=== PATIENT | female | born 1950 | race African-American/Black ===

== ENCOUNTER 2016-12-23 10:46 | Emergency (ER) | payer MEDICARE, OTHER ==
[~2016-12-23] VITALS: Ht 172.7 cm; Wt 75.7 kg
[~2016-12-23 10:46] MED LIST: LOSA25TA3 PO; PROT40 PO
[2016-12-23] MEDS ORDERED: IPRATROPIUM BROMIDE (0.02%) 0.5MG/2.5ML NEB HHN STA (11:10)
[2016-12-23] MEDS: ALBUTEROL (0.083%) 2.5MG/3ML NEB HHN SCH ×3 (11:30→12:30)
[2016-12-23] MEDS ORDERED: DEXAMETHASONE 4MG TABLET PO ONE (11:30)
[2016-12-23 11:44] LABS: BASOPHILS % 2.2 % (0.0-2.0); EOSINOPHILS % 3.5 % (0.0-5.0); HEMATOCRIT. 29.5 % (36.0-48.0); HEMOGLOBIN. 10.2 g/dL (12.0-16.0); LYMPHOCYTES % 38.1 % (20.0-50.0); MEAN CORPUSCULAR HEMOGLOBIN 28.7 pg (28.0-32.0); MEAN CORPUSCULAR VOLUME 83.3 fL (81.0-99.0); MEAN PLATELET VOLUME 5.9 fl (7.4-10.4); NEUTROPHILS % 43.2 % (40.0-76.0); PLATELET 319 x1000/uL (130-400); RED BLOOD CELL COUNT 3.55 mill/uL (4.2-5.4)
[2016-12-23 11:49] LABS: INR 1.1; PROTHROMBIN TIME 11.2 sec (9.4-11.6)
[2016-12-23 11:59] LABS: CARBON DIOXIDE 27 mEq/L (21-32); CHLORIDE 95 mEq/L (98-107); TROPONIN I < 0.02 ng/mL (0.00-0.04)
[2016-12-23] MEDS ORDERED: SODIUM CHLORIDE 0.9% 1,000 ML IV ONE (12:15)
[2016-12-23 14:29] VITALS: BP 135/70
== END 2016-12-23 14:31 | disposition home or self-care (01) ==
LOC: ER 12:29
DX: J44.1 Chronic obstructive pulmonary disease with (acute) exacerbation (principal)
CPT/HCPCS: 36415; 71010; 80053; 83880; 84484; 85025; 85610; 93005; 94640; 96360; 96361; 99285; J7611; J7030; J8540

== ENCOUNTER 2017-03-19 15:47 | Inpatient (IN) | payer MEDICARE, OTHER ==
[~2017-03-19] VITALS: Ht 170.2 cm; Wt 87.5 kg
[2017-03-19] MEDS ORDERED: ALBUTEROL (0.083%) 2.5MG/3ML NEB HHN STA (17:29)
[2017-03-19] MEDS ORDERED: METHYLPREDNISOLONE SOD SUCC 125 MG/2 ML VIAL IV STA (17:29)
[2017-03-19] MEDS ORDERED: IPRATROPIUM BROMIDE (0.02%) 0.5MG/2.5ML NEB HHN STA (17:29)
[2017-03-19 18:21] LABS: BASOPHILS % 1.2 % (0.0-2.0); EOSINOPHILS % 3.3 % (0.0-5.0); HEMATOCRIT. 35.5 % (36.0-48.0); HEMOGLOBIN. 11.7 g/dL (12.0-16.0); LYMPHOCYTES % 49.9 % (20.0-50.0); MEAN CORPUSCULAR HEMOGLOBIN 26.9 pg (28.0-32.0); MEAN CORPUSCULAR VOLUME 81.5 fL (81.0-99.0); MEAN PLATELET VOLUME 6.6 fl (7.4-10.4); MONOCYTES % 7.2 % (2.0-8.0); NEUTROPHILS % 38.4 % (40.0-76.0); PLATELET 305 x1000/uL (130-400); RED BLOOD CELL COUNT 4.36 mill/uL (4.2-5.4); RED CELL DISTRIBUTION WIDTH 14.2 % (11.6-14.6)
[2017-03-19 18:25] LABS: PARTIAL THROMBOPLASTIN TIME 25.9 sec (23.4-31.0); PROTHROMBIN TIME 10.4 sec (9.4-11.6)
[2017-03-19 18:30] LABS: CHLORIDE 102 mEq/L (98-107)
[2017-03-19] MEDS ORDERED: ASPIRIN 81MG TABLET PO ONE (18:45)
[2017-03-19] MEDS ORDERED: LEVOFLOXACIN 750MG PREMIX 150 ML IV ONE (18:45)
[2017-03-19] MEDS ORDERED: NITROGLYCERIN OINT 1GM/INCH UDPKT TD ONE (18:45)
[2017-03-19] MEDS ORDERED: MAGNESIUM 2 G PREMIX 50 ML IV ONE (18:45)
[2017-03-19 19:33] LABS: BG CARBOXYHEMOGLOBIN 0.2 % (0.5-1.5); BG DEOXYHEMOGLOBIN 0.7 % (0.0-5.0); BG FRACTION INSPIRED OXYGEN 51; BG HCO3 ACT 27.3 mmol/L (22.0-26.0); BG METHEMOGLOBIN 0.4 % (0.0-1.5); BG OXYGEN SATURATION 99.3 % (92.0-98.5); BG OXYHEMOGLOBIN 98.7 % (94.0-97.0); BG PCO2 45.9 mmHg (35.0-45.0); BG PH 7.393 (7.350-7.450); BG PO2 190.7 mmHg (75.0-100.0); BG SAMPLE SITE LEFT RADIAL; BG TOTAL HEMOGLOBIN 11.7 g/dL (12.0-18.0)
[2017-03-19 19:35] LABS: ETHANOL BLOOD < 10 mg/dL
[2017-03-19 22:00] VITALS: BP 165/62
[2017-03-19] MEDS ORDERED: METO25TA6 PO (23:19)
[2017-03-19] MEDS ORDERED: PHEN100C12 PO (23:19)
[2017-03-19] MEDS ORDERED: BENA1TAB16 PO (23:19)
[2017-03-19] MEDS ORDERED: HYDR-4134 PO (23:19)
[2017-03-19] MEDS ORDERED: HYDR25TA PO (23:19)
[2017-03-19] MEDS ORDERED: AMLO10TA80 PO (23:19)
[2017-03-19] MEDS ORDERED: GABA-531 PO (23:19)
[2017-03-20] VITALS: BP 135/63
[2017-03-20] MEDS ORDERED: IPRATROPIUM/ALBUTEROL 0.5-3(2.5)MG/3ML NEB INH PRN
[2017-03-20] MEDS ORDERED: CLONIDINE 0.1MG TABLET PO PRN
[2017-03-20] MEDS ORDERED: MAGNESIUM/ALUMINUM HYDROXIDE/SIMETHICONE 30ML UDC PO PRN
[2017-03-20] MEDS ORDERED: DIPHENHYDRAMINE 50MG/ML VIAL IV PRN
[2017-03-20] MEDS ORDERED: ACETAMINOPHEN 325MG TABLET PO PRN
[2017-03-20] MEDS ORDERED: ONDANSETRON HCL 4MG/2ML INJ IV PRN
[2017-03-20 04:00] VITALS: BP 126/59
[2017-03-20] MEDS: SODIUM CHLORIDE 0.9% INJ 3ML FLUSH IVF SCH ×2 (06:42→20:34)
[2017-03-20 08:00] VITALS: BP 139/69
[2017-03-20] MEDS: PANTOPRAZOLE 40MG DR TABLET PO SCH (08:25)
[2017-03-20] MEDS: AMLODIPINE 10MG TABLET PO SCH (08:36)
[2017-03-20] MEDS: PHENYTOIN SODIUM EXTENDED 100MG CAPSULE PO SCH ×3 (08:36→17:54)
[2017-03-20] MEDS: GABAPENTIN 300MG CAPSULE PO SCH ×3 (08:36→17:53)
[2017-03-20] MEDS: HYDRALAZINE HCL 25MG TABLET PO SCH ×3 (08:36→21:22)
[2017-03-20] MEDS: IPRATROPIUM/ALBUTEROL 0.5-3(2.5)MG/3ML NEB HHN SCH ×4 (08:56→21:05)
[2017-03-20 12:00] VITALS: BP 130/60
[2017-03-20] MEDS ORDERED: PROMETHAZINE/DEXTROMETHORPHAN 6.25-15MG/5ML BOTTLE 120ML PO PRN (13:45)
[2017-03-20 18:00] VITALS: BP 131/58
[2017-03-20 20:00] VITALS: BP 139/68
[2017-03-20] MEDS ORDERED: LEVOFLOXACIN 500MG PREMIX 100 ML IV SCH (20:00)
[2017-03-20] MEDS: GUAIFENESIN 600MG ER TABLET PO SCH (21:22)
[2017-03-21] VITALS: BP 132/65
[2017-03-21] MEDS: IPRATROPIUM/ALBUTEROL 0.5-3(2.5)MG/3ML NEB HHN SCH ×5 (00:30→16:06)
[2017-03-21 04:00] VITALS: BP 134/58
[2017-03-21] MEDS: SODIUM CHLORIDE 0.9% INJ 3ML FLUSH IVF SCH ×2 (06:12→14:00)
[2017-03-21] MEDS: HYDRALAZINE HCL 25MG TABLET PO SCH ×2 (06:12→12:32)
[2017-03-21 08:00] VITALS: BP 127/89
[2017-03-21] MEDS: PANTOPRAZOLE 40MG DR TABLET PO SCH (08:51)
[2017-03-21] MEDS: AMLODIPINE 10MG TABLET PO SCH (08:57)
[2017-03-21] MEDS: GABAPENTIN 300MG CAPSULE PO SCH ×3 (08:57→17:13)
[2017-03-21] MEDS: GUAIFENESIN 600MG ER TABLET PO SCH (08:57)
[2017-03-21] MEDS: PHENYTOIN SODIUM EXTENDED 100MG CAPSULE PO SCH ×2 (08:57→17:12)
[2017-03-21 12:00] VITALS: BP 127/73
[2017-03-21 16:03] VITALS: BP 127/73
[2017-03-22] MEDS ORDERED: FAMOTIDINE 20MG TABLET PO SCH (09:00)
== END 2017-03-21 17:25 | disposition home or self-care (01) | DRG 192 ==
LOC: ER 17:33 → 7WST 19:37 → EDBEDREQTM 19:37 → EDBEDREQ 19:37 → ENRESERV 20:34
PROVIDERS: ADMIT Internal Medicine; ATTEND Internal Medicine
DX: J44.0 Chronic obstructive pulmonary disease with (acute) lower respiratory infection (principal); I10 Essential (primary) hypertension; J44.1 Chronic obstructive pulmonary disease with (acute) exacerbation; M19.90 Unspecified osteoarthritis, unspecified site; J20.9 Acute bronchitis, unspecified; K21.9 Gastro-esophageal reflux disease without esophagitis; Z88.8 Allergy status to other drugs, medicaments and biological substances; Z91.048 Other nonmedicinal substance allergy status; Z79.899 Other long term (current) drug therapy; Z98.51 Tubal ligation status; Z90.49 Acquired absence of other specified parts of digestive tract
CPT/HCPCS: 36415; 36600; 71045; 82375; 82805; 83605; 83880; 84484; 93005; 94640; 96365; 96367; 96375; 99285; G0482; J1956; J2930; J3475; J7050; J7611; J7620

== ENCOUNTER 2022-02-26 15:50 | Inpatient (IN) | payer BC, MEDICARE ==
[~2022-02-26] VITALS: Ht 167.6 cm; Wt 93.9 kg
[~2022-02-26 15:50] MED LIST changes: +AMLO10TA80 PO; +BENA1TAB16 PO; +GABA-532 PO; +HYDR-4134 PO; +HYDR25TA PO; -LOSA25TA3 PO; +METO25TA6 PO; +PHEN100C12 PO
[2022-02-26] MEDS ORDERED: keppra (16:58)
[2022-02-26] MEDS ORDERED: LEVETIRACETAM 1000MG PREMIX 100 ML IV ONE (18:00)
[2022-02-26] MEDS ORDERED: LEVETIRACETAM 1,000 MG in SODIUM CHLORIDE 0.9% 100 ML IV NR (18:15)
[2022-02-26 18:26] LABS: MEAN CORPUSCULAR HEMOGLOBIN 25.9 pg (28.0-32.0); MEAN PLATELET VOLUME 6.7 fl (7.4-10.4); PLATELET 327 x1000/uL (130-400); RED BLOOD CELL COUNT 4.25 mill/uL (4.2-5.4); RED CELL DISTRIBUTION WIDTH 17.8 % (11.6-14.6)
[2022-02-26 19:37] LABS: CHLORIDE 99 mEq/L (98-107)
[2022-02-26 19:44] LABS: ETHANOL BLOOD < 10 mg/dL
[2022-02-26 22:47] LABS: PLATELET ESTIMATE NORMAL
[2022-02-27] MEDS ORDERED: ONDANSETRON HCL 4MG/2ML INJ IV PRN (05:00)
[2022-02-27] MEDS ORDERED: IPRATROPIUM/ALBUTEROL 0.5-3(2.5)MG/3ML NEB HHN PRN (05:00)
[2022-02-27] MEDS ORDERED: DOCUSATE SODIUM 100MG CAPSULE PO PRN (05:00)
[2022-02-27] MEDS ORDERED: ACETAMINOPHEN 325MG TABLET PO PRN ×2 (05:00)
[2022-02-27] MEDS ORDERED: GUAIFENESIN 200MG/10ML SUGAR FREE UDC PO PRN (05:00)
[2022-02-27] MEDS ORDERED: MAGNESIUM/ALUMINUM HYDROXIDE/SIMETHICONE 30ML UDC PO PRN (05:00)
[2022-02-27] MEDS ORDERED: CLONIDINE 0.1MG TABLET PO PRN (05:00)
[2022-02-27] MEDS ORDERED: TELM40TA7 PO (05:32)
[2022-02-27] MEDS ORDERED: CARV12.545 PO (05:32)
[2022-02-27 06:02] LABS: PHOSPHORUS 4.1 mg/dL (2.5-4.9)
[2022-02-27 06:55] LABS: TOTAL IRON BINDING CAPACITY 473 ug/dL (250-450)
[2022-02-27 07:08] LABS: FERRITIN 30 ng/mL (10-291)
[2022-02-27 07:33] LABS: VITAMIN B12 SERUM 690 pg/mL (211-911)
[2022-02-27] MEDS ORDERED: LEVETIRACETAM 500MG PREMIX 100 ML IV ONE (09:00)
[2022-02-27] MEDS: FAMOTIDINE 20MG TABLET PO SCH ×2 (09:17→21:09)
[2022-02-27] MEDS: LOSARTAN POTASSIUM 50 MG TABLET PO SCH (09:17)
[2022-02-27] MEDS: CARVEDILOL 12.5MG TABLET PO SCH ×2 (09:17→17:00)
[2022-02-27] MEDS: ENOXAPARIN 40MG/0.4ML SYR SUBCUT SCH (09:18)
[2022-02-27 09:57] LABS: CLARITY URINE CLOUDY (CLEAR); COLOR URINE DARK YELLOW (YELLOW); KETONES URINE TRACE (NEGATIVE); LEUKOCYTE ESTERASE URINE 1+ (NEGATIVE); NITRITE URINE NEGATIVE (NEGATIVE); OCCULT BLOOD URINE TRACE (NEGATIVE); PH URINE 5.5 (4.5-8.0); PROTEIN URINE 2+ (NEGATIVE); SPECIFIC GRAVITY URINE 1.019 (1.005-1.030); UROBILINOGEN URINE 0.2 E.U./dL (0.2-1.0)
[2022-02-27 10:18] LABS: *AMPHETAMINES SCREEN URINE NEGATIVE (NEGATIVE); *BARBITURATES SCREEN URINE NEGATIVE (NEGATIVE); *BENZODIAZEPINES SCREEN URINE NEGATIVE (NEGATIVE); *COCAINE SCREEN URINE NEGATIVE (NEGATIVE); CANNABINOID URINE SCREEN NEGATIVE (NEGATIVE); METHADONE URINE SCREEN NEGATIVE (NEGATIVE); OPIATES URINE SCREEN NEGATIVE (NEGATIVE); PHENCYCLIDINE URINE SCREEN NEGATIVE (NEGATIVE)
[2022-02-27 10:35] LABS: FOLIC ACID (FOLATE) SERUM > 20.00 ng/mL (>5.38)
[2022-02-27] MEDS ORDERED: CEFTRIAXONE SODIUM 1 G/VIAL IV SCH (11:15)
[2022-02-27] MEDS ORDERED: CEFTRIAXONE 1GM PREMIX 50ML IV NR (12:00)
[2022-02-27 15:38] LABS: CREATINE KINASE 327 IU/L (26-192)
[2022-02-27 18:22] VITALS: BP 147/66
[2022-02-27 18:28] VITALS: BP 133/80
[2022-02-27 18:42] VITALS: BP 132/70
[2022-02-27 20:00] VITALS: BP 128/71
[2022-02-27] MEDS: LEVETIRACETAM 500MG/5ML CUP PO SCH (22:28)
[2022-02-27] MEDS ORDERED: THIAMINE HCL 100 MG in SODIUM CHLORIDE 0.9% 49 ML IV NR (23:00)
[2022-02-28] VITALS: BP 126/66
[2022-02-28 04:00] VITALS: BP 133/51
[2022-02-28 06:46] LABS: CHLORIDE 103 mEq/L (98-107); HDL CHOLESTEROL 59 mg/dL (40-59); LDL CHOLESTEROL 182 mg/dL (5-100); T4 FREE 1.11 ng/dL (0.76-1.46)
[2022-02-28 06:49] LABS: BASOPHILS % 0.6 % (0.0-2.0); HEMATOCRIT. 26.4 % (36.0-48.0); HEMOGLOBIN. 8.6 g/dL (12.0-16.0); LYMPHOCYTES % 11.9 % (20.0-50.0); MEAN CORPUSCULAR HEMOGLOBIN 26.2 pg (28.0-32.0); MEAN CORPUSCULAR VOLUME 80.2 fL (81.0-99.0); MEAN PLATELET VOLUME 6.9 fl (7.4-10.4); MONOCYTES % 11.4 % (2.0-8.0); NEUTROPHILS % 75.1 % (40.0-76.0); PLATELET 250 x1000/uL (130-400); RED BLOOD CELL COUNT 3.29 mill/uL (4.2-5.4); RED CELL DISTRIBUTION WIDTH 18.6 % (11.6-14.6)
[2022-02-28 08:14] VITALS: BP 133/51
[2022-02-28] MEDS: ENOXAPARIN 40MG/0.4ML SYR SUBCUT SCH (08:15)
[2022-02-28] MEDS: LOSARTAN POTASSIUM 50 MG TABLET PO SCH (08:15)
[2022-02-28] MEDS: LEVETIRACETAM 500MG/5ML CUP PO SCH ×2 (08:15→21:11)
[2022-02-28] MEDS: FAMOTIDINE 20MG TABLET PO SCH ×2 (08:15→21:11)
[2022-02-28] MEDS: CARVEDILOL 12.5MG TABLET PO SCH ×2 (08:16→17:32)
[2022-02-28] MEDS: CEFTRIAXONE 1,000 MG in DEXTROSE 5% WATER 50 ML IV SCH (11:31)
[2022-02-28] MEDS ORDERED: CEFTRIAXONE 1,000 MG in DEXTROSE 5% WATER 50 ML IV SCH (12:00)
[2022-02-28 13:18] VITALS: BP 129/67
[2022-02-28] MEDS ORDERED: IPRATROPIUM BROMIDE (0.02%) 0.5MG/2.5ML NEB HHN PRN (14:15)
[2022-02-28] MEDS ORDERED: ALBUTEROL (0.083%) 2.5MG/3ML NEB HHN PRN (14:15)
[2022-02-28 17:32] VITALS: BP 125/68
[2022-02-28 20:03] VITALS: BP 125/55
[2022-03-01] VITALS: BP 148/76
[2022-03-01 04:00] VITALS: BP 155/68
[2022-03-01 08:00] VITALS: BP 117/69
[2022-03-01] MEDS: LOSARTAN POTASSIUM 50 MG TABLET PO SCH (08:14)
[2022-03-01] MEDS: LEVETIRACETAM 500MG/5ML CUP PO SCH ×2 (08:14→21:20)
[2022-03-01] MEDS: CARVEDILOL 12.5MG TABLET PO SCH ×2 (08:14→17:00)
[2022-03-01] MEDS: FAMOTIDINE 20MG TABLET PO SCH ×2 (08:14→21:20)
[2022-03-01 12:00] VITALS: BP 99/65
[2022-03-01] MEDS: CEFTRIAXONE 1,000 MG in DEXTROSE 5% WATER 50 ML IV SCH (12:42)
[2022-03-01 16:00] VITALS: BP 149/94
[2022-03-01 20:00] VITALS: BP 149/68
[2022-03-01] MEDS: ATORVASTATIN CALCIUM 20MG TABLET PO SCH (21:20)
[2022-03-02] VITALS (10 sets, daily range): BP systolic 114–157; BP diastolic 61–84
[2022-03-02 06:45] LABS: HEMATOCRIT. 26.5 % (36.0-48.0); HEMOGLOBIN. 8.5 g/dL (12.0-16.0); MEAN CORPUSCULAR VOLUME 81.3 fL (81.0-99.0); PLATELET 275 x1000/uL (130-400); RED BLOOD CELL COUNT 3.26 mill/uL (4.2-5.4); RED CELL DISTRIBUTION WIDTH 18.5 % (11.6-14.6)
[2022-03-02 06:53] LABS: CHLORIDE 106 mEq/L (98-107)
[2022-03-02] MEDS: FAMOTIDINE 20MG TABLET PO SCH ×2 (07:53→21:16)
[2022-03-02] MEDS: LEVETIRACETAM 500MG/5ML CUP PO SCH ×2 (07:53→21:16)
[2022-03-02] MEDS: LOSARTAN POTASSIUM 50 MG TABLET PO SCH (07:54)
[2022-03-02] MEDS: CARVEDILOL 12.5MG TABLET PO SCH ×2 (07:56→17:00)
[2022-03-02] MEDS: CEFTRIAXONE 1,000 MG in DEXTROSE 5% WATER 50 ML IV SCH (11:09)
[2022-03-02 14:11] LABS: PLATELET ESTIMATE NORMAL
[2022-03-02] MEDS: ATORVASTATIN CALCIUM 20MG TABLET PO SCH (21:16)
[2022-03-03] VITALS (9 sets, daily range): BP systolic 118–152; BP diastolic 52–82
[2022-03-03] MEDS: CARVEDILOL 12.5MG TABLET PO SCH ×2 (08:04→17:00)
[2022-03-03] MEDS: LEVETIRACETAM 500MG/5ML CUP PO SCH (08:05)
[2022-03-03] MEDS: LOSARTAN POTASSIUM 50 MG TABLET PO SCH (08:05)
[2022-03-03] MEDS: FAMOTIDINE 20MG TABLET PO SCH (08:05)
[2022-03-03] MEDS: CEFTRIAXONE 1,000 MG in DEXTROSE 5% WATER 50 ML IV SCH (11:21)
[2022-03-03] MEDS ORDERED: LEVETIRACETAM 500MG/5ML CUP PO SCH (21:00)
== END 2022-03-03 18:50 | disposition home or self-care (01) | DRG 101 ==
LOC: ER 15:50 → 3WST 22:02 → ENRESERV 02-27 17:21
PROVIDERS: ADMIT Internal Medicine; ATTEND Internal Medicine
PROC: 4A00X4Z Measurement of Central Nervous Electrical Activity, External Approach (ICD-10-PCS; principal; 2022-02-28)
DX: G40.909 Epilepsy, unspecified, not intractable, without status epilepticus (principal); E87.1 Hypo-osmolality and hyponatremia; F05 Delirium due to known physiological condition; R65.10 Systemic inflammatory response syndrome (SIRS) of non-infectious origin without acute organ dysfunction; D72.829 Elevated white blood cell count, unspecified; Z20.822 Contact with and (suspected) exposure to COVID-19; E78.5 Hyperlipidemia, unspecified; E11.9 Type 2 diabetes mellitus without complications; D63.8 Anemia in other chronic diseases classified elsewhere; I10 Essential (primary) hypertension; M19.90 Unspecified osteoarthritis, unspecified site; J44.9 Chronic obstructive pulmonary disease, unspecified; R32 Unspecified urinary incontinence; Z79.899 Other long term (current) drug therapy; I25.2 Old myocardial infarction; Z91.048 Other nonmedicinal substance allergy status; Z98.51 Tubal ligation status
CPT/HCPCS: 36415; 80048; 80053; 80061; 80184; 80185; 80305; 80320; 81003; 82140; 82542; 82550; 82607; 82728; 82746; 83036; 83540; 83550; 83605; 83735; 84100; 84145; 84439; 84443; 85025; 93005; 93970; 95816; 97162; 97166; 97530; 99285; J0696; J1650; J1953; J3411; J7050; J7060; G0480